=== PATIENT | male | born 1930 | race Caucasian/White ===

== ENCOUNTER 2022-06-19 04:40 | Inpatient (IN) | payer MEDICARE, MEDICAID ==
[~2022-06-19] VITALS: Ht 172.7 cm; Wt 67.8 kg
[2022-06-19] MEDS ORDERED: ONDANSETRON HCL 4MG/2ML INJ IV PRN (06:45)
[2022-06-19] MEDS ORDERED: SODIUM CHLORIDE 0.9% INJ 3ML FLUSH IVF SCH (06:45)
[2022-06-19] MEDS ORDERED: FAMOTIDINE 20MG TABLET PO ONE (06:45)
[2022-06-19 08:00] VITALS: BP 105/55
[2022-06-19] MEDS: LISINOPRIL 20MG TABLET PO SCH (09:00)
[2022-06-19] MEDS: AMLODIPINE 10MG TABLET PO SCH (09:00)
[2022-06-19] MEDS: LEVETIRACETAM 250MG TABLET PO SCH ×2 (09:55→20:27)
[2022-06-19] MEDS: CLOPIDOGREL 75MG TABLET PO SCH (09:55)
[2022-06-19] MEDS: HYDROCODONE/ACETAMINOPHEN 5/325MG TABLET PO PRN ×2 (09:55→17:23)
[2022-06-19] MEDS: FAMOTIDINE 20MG TABLET PO SCH (09:55)
[2022-06-19] MEDS: ASPIRIN 81MG EC TABLET PO SCH (09:56)
[2022-06-19] MEDS: DOCUSATE SODIUM 250MG CAPSULE PO SCH (09:57)
[2022-06-19 11:55] LABS: BASOPHILS % 0.8 % (0.0-2.0); EOSINOPHILS % 3.6 % (0.0-5.0); HEMATOCRIT. 42.5 % (42.0-52.0); HEMOGLOBIN. 13.6 g/dL (14.0-18.0); LYMPHOCYTES % 22.6 % (20.0-50.0); MEAN CORPUSCULAR HEMOGLOBIN 29.6 pg (28.0-32.0); MEAN CORPUSCULAR VOLUME 92.5 fL (80.0-94.0); MONOCYTES % 11.5 % (2.0-8.0); NEUTROPHILS % 61.5 % (40.0-76.0); RED CELL DISTRIBUTION WIDTH 15.6 % (11.6-14.6)
[2022-06-19 12:33] LABS: PLATELET 241 x1000/uL (130-400)
[2022-06-19] MEDS: NICOTINE 14MG PATCH TD SCH (13:34)
[2022-06-19 13:38] LABS: CHLORIDE 104 mEq/L (98-107)
[2022-06-19 20:18] VITALS: BP 134/41
[2022-06-20] MEDS: LACTULOSE 20G/30ML UDC PO PRN (04:59)
[2022-06-20] MEDS: HYDROCODONE/ACETAMINOPHEN 5/325MG TABLET PO PRN ×3 (05:00→18:54)
[2022-06-20 05:56] LABS: BASOPHILS % 0.6 % (0.0-2.0); EOSINOPHILS % 3.8 % (0.0-5.0); HEMATOCRIT. 39.1 % (42.0-52.0); HEMOGLOBIN. 13.1 g/dL (14.0-18.0); LYMPHOCYTES % 22.7 % (20.0-50.0); MEAN CORPUSCULAR HEMOGLOBIN 29.5 pg (28.0-32.0); MEAN CORPUSCULAR VOLUME 88.3 fL (80.0-94.0); MEAN PLATELET VOLUME 7.7 fl (7.4-10.4); MONOCYTES % 10.2 % (2.0-8.0); NEUTROPHILS % 62.7 % (40.0-76.0); PLATELET 370 x1000/uL (130-400); RED BLOOD CELL COUNT 4.43 mill/uL (4.7-6.1); RED CELL DISTRIBUTION WIDTH 15.3 % (11.6-14.6)
[2022-06-20 06:09] LABS: CHLORIDE 101 mEq/L (98-107)
[2022-06-20 06:24] LABS: HDL CHOLESTEROL 35 mg/dL (40-59); LDL CHOLESTEROL 94 mg/dL (5-100); TOTAL IRON BINDING CAPACITY 293 ug/dL (250-450)
[2022-06-20 06:26] LABS: FERRITIN 601 ng/mL (22-322)
[2022-06-20 07:01] LABS: VITAMIN B12 SERUM > 2000.0 pg/mL (211-911)
[2022-06-20 08:00] VITALS: BP 153/66
[2022-06-20] MEDS: ASPIRIN 81MG EC TABLET PO SCH (09:47)
[2022-06-20] MEDS: LISINOPRIL 20MG TABLET PO SCH (09:47)
[2022-06-20] MEDS: DOCUSATE SODIUM 250MG CAPSULE PO SCH (09:47)
[2022-06-20] MEDS: FAMOTIDINE 20MG TABLET PO SCH (09:47)
[2022-06-20] MEDS: CLOPIDOGREL 75MG TABLET PO SCH (09:48)
[2022-06-20] MEDS: NICOTINE 14MG PATCH TD SCH (09:48)
[2022-06-20] MEDS: AMLODIPINE 10MG TABLET PO SCH (09:48)
[2022-06-20] MEDS: LEVETIRACETAM 250MG TABLET PO SCH ×3 (09:48→20:56)
[2022-06-20 19:58] VITALS: BP 156/70
[2022-06-21] MEDS: HYDROCODONE/ACETAMINOPHEN 5/325MG TABLET PO PRN ×2 (06:23→18:34)
[2022-06-21 08:00] VITALS: BP 158/71
[2022-06-21] MEDS: ASPIRIN 81MG EC TABLET PO SCH (08:33)
[2022-06-21] MEDS: DOCUSATE SODIUM 250MG CAPSULE PO SCH (08:33)
[2022-06-21] MEDS: CLOPIDOGREL 75MG TABLET PO SCH (08:33)
[2022-06-21] MEDS: LISINOPRIL 20MG TABLET PO SCH (08:34)
[2022-06-21] MEDS: AMLODIPINE 10MG TABLET PO SCH (08:34)
[2022-06-21] MEDS: LEVETIRACETAM 250MG TABLET PO SCH ×2 (08:34→20:36)
[2022-06-21] MEDS: NICOTINE 14MG PATCH TD SCH (08:35)
[2022-06-21] MEDS: FAMOTIDINE 20MG TABLET PO SCH (09:18)
[2022-06-21] MEDS: ACETAMINOPHEN 325MG TABLET PO PRN (12:22)
[2022-06-21] MEDS ORDERED: POLYETHYLENE GLYCOL 3350 (17GM) 1 DOSE PACK PO ONE (18:00)
[2022-06-21] MEDS ORDERED: NALOXONE HCL 0.4MG/ML VIAL IV PRN (18:15)
[2022-06-21] MEDS: POLYETHYLENE GLYCOL 3350 (17GM) 1 DOSE PACK PO SCH (18:27)
[2022-06-21] MEDS: LIDOCAINE 5% PATCH TOP SCH (18:34)
[2022-06-21 20:00] VITALS: BP 145/67
[2022-06-22] MEDS: LACTULOSE 20G/30ML UDC PO PRN (06:12)
[2022-06-22] MEDS: LEVOTHYROXINE SODIUM 25MCG TABLET PO SCH (06:13)
[2022-06-22] MEDS: HYDROCODONE/ACETAMINOPHEN 5/325MG TABLET PO PRN (06:15)
[2022-06-22] MEDS ORDERED: NA PHOS,M-B/NA PHOS,DI-BA ENEMA 118ML PR PRN (07:45)
[2022-06-22 08:00] VITALS: BP 158/69
[2022-06-22] MEDS: ASPIRIN 81MG EC TABLET PO SCH (08:55)
[2022-06-22] MEDS: CLOPIDOGREL 75MG TABLET PO SCH (08:55)
[2022-06-22] MEDS: LEVETIRACETAM 250MG TABLET PO SCH ×2 (08:55→20:23)
[2022-06-22] MEDS: LISINOPRIL 20MG TABLET PO SCH (08:55)
[2022-06-22] MEDS: DOCUSATE SODIUM 250MG CAPSULE PO SCH (08:56)
[2022-06-22] MEDS: AMLODIPINE 10MG TABLET PO SCH (08:56)
[2022-06-22] MEDS: FAMOTIDINE 20MG TABLET PO SCH (08:56)
[2022-06-22] MEDS: NICOTINE 14MG PATCH TD SCH (08:58)
[2022-06-22] MEDS: LIDOCAINE 5% PATCH TOP SCH (08:58)
[2022-06-22] MEDS: POLYETHYLENE GLYCOL 3350 (17GM) 1 DOSE PACK PO SCH (09:07)
[2022-06-22] MEDS: LACTULOSE 20G/30ML UDC PO SCH ×3 (11:19→17:11)
[2022-06-22 20:00] VITALS: BP 123/59
[2022-06-23] MEDS: LEVOTHYROXINE SODIUM 25MCG TABLET PO SCH (06:14)
[2022-06-23 08:00] VITALS: BP 151/69
[2022-06-23] MEDS: LEVETIRACETAM 250MG TABLET PO SCH ×2 (09:20→20:32)
[2022-06-23] MEDS: DOCUSATE SODIUM 250MG CAPSULE PO SCH (09:20)
[2022-06-23] MEDS: CLOPIDOGREL 75MG TABLET PO SCH (09:20)
[2022-06-23] MEDS: LISINOPRIL 20MG TABLET PO SCH (09:21)
[2022-06-23] MEDS: FAMOTIDINE 20MG TABLET PO SCH (09:22)
[2022-06-23] MEDS: ASPIRIN 81MG EC TABLET PO SCH (09:22)
[2022-06-23] MEDS: POLYETHYLENE GLYCOL 3350 (17GM) 1 DOSE PACK PO SCH (09:22)
[2022-06-23] MEDS: AMLODIPINE 10MG TABLET PO SCH (09:22)
[2022-06-23] MEDS: NICOTINE 14MG PATCH TD SCH (09:23)
[2022-06-23] MEDS: LIDOCAINE 5% PATCH TOP SCH (09:26)
[2022-06-23 10:31] LABS: BASOPHILS % 0.7 % (0.0-2.0); EOSINOPHILS % 1.8 % (0.0-5.0); HEMATOCRIT. 40.8 % (42.0-52.0); HEMOGLOBIN. 13.5 g/dL (14.0-18.0); LYMPHOCYTES % 18.1 % (20.0-50.0); MEAN CORPUSCULAR HEMOGLOBIN 29.7 pg (28.0-32.0); MEAN CORPUSCULAR VOLUME 90.3 fL (80.0-94.0); NEUTROPHILS % 71.4 % (40.0-76.0); PLATELET 381 x1000/uL (130-400); RED BLOOD CELL COUNT 4.53 mill/uL (4.7-6.1); RED CELL DISTRIBUTION WIDTH 15.2 % (11.6-14.6)
[2022-06-23 10:52] LABS: CHLORIDE 99 mEq/L (98-107)
[2022-06-23 20:21] VITALS: BP 149/56
[2022-06-24] MEDS: LEVOTHYROXINE SODIUM 25MCG TABLET PO SCH ×2 (06:14→07:00)
[2022-06-24 08:00] VITALS: BP 150/59
[2022-06-24] MEDS: DOCUSATE SODIUM 250MG CAPSULE PO SCH (08:28)
[2022-06-24] MEDS: LEVETIRACETAM 250MG TABLET PO SCH ×2 (08:28→20:35)
[2022-06-24] MEDS: ASPIRIN 81MG EC TABLET PO SCH (08:28)
[2022-06-24] MEDS: AMLODIPINE 10MG TABLET PO SCH (08:29)
[2022-06-24] MEDS: LISINOPRIL 20MG TABLET PO SCH (08:30)
[2022-06-24] MEDS: FAMOTIDINE 20MG TABLET PO SCH (08:30)
[2022-06-24] MEDS: CLOPIDOGREL 75MG TABLET PO SCH (08:30)
[2022-06-24] MEDS: LIDOCAINE 5% PATCH TOP SCH (08:33)
[2022-06-24] MEDS: HYDROCODONE/ACETAMINOPHEN 5/325MG TABLET PO PRN (08:33)
[2022-06-24] MEDS: POLYETHYLENE GLYCOL 3350 (17GM) 1 DOSE PACK PO SCH (08:37)
[2022-06-24] MEDS: NICOTINE 14MG PATCH TD SCH (08:39)
[2022-06-24] MEDS ORDERED: FAMO20TA8 PO (15:42)
[2022-06-24] MEDS ORDERED: LISI20TA31 PO (15:42)
[2022-06-24] MEDS ORDERED: AMLO10TA80 PO (15:42)
[2022-06-24] MEDS ORDERED: CLOP-31 PO (15:43)
[2022-06-24] MEDS ORDERED: LIDOCAINE HCL 1% 10 MG/ML 10ML VIAL INJ NR (16:00)
[2022-06-24] MEDS ORDERED: TRIAMCINOLONE ACETONIDE 40MG/ML 1ML VIAL IM NR (16:00)
[2022-06-24] MEDS ORDERED: ETHYL CHLORIDE CAN TOP NR (16:00)
[2022-06-24] MEDS: CARBIDOPA/LEVODOPA 25/100MG TABLET CR PO SCH (17:15)
[2022-06-24 20:02] VITALS: BP 146/78
[2022-06-25] MEDS: LEVOTHYROXINE SODIUM 25MCG TABLET PO SCH (06:19)
[2022-06-25 08:00] VITALS: BP 127/65
[2022-06-25] MEDS: POLYETHYLENE GLYCOL 3350 (17GM) 1 DOSE PACK PO SCH (08:28)
[2022-06-25] MEDS: CLOPIDOGREL 75MG TABLET PO SCH (08:30)
[2022-06-25] MEDS: AMLODIPINE 10MG TABLET PO SCH (08:30)
[2022-06-25] MEDS: LEVETIRACETAM 250MG TABLET PO SCH ×2 (08:30→20:44)
[2022-06-25] MEDS: ASPIRIN 81MG EC TABLET PO SCH (08:31)
[2022-06-25] MEDS: FAMOTIDINE 20MG TABLET PO SCH (08:31)
[2022-06-25] MEDS: LISINOPRIL 40MG TABLET PO SCH (08:32)
[2022-06-25] MEDS: NICOTINE 14MG PATCH TD SCH (08:32)
[2022-06-25] MEDS: LIDOCAINE 5% PATCH TOP SCH (08:33)
[2022-06-25] MEDS: DOCUSATE SODIUM 250MG CAPSULE PO SCH (09:00)
[2022-06-25] MEDS: CARBIDOPA/LEVODOPA 25/100MG TABLET CR PO SCH ×2 (12:12→18:03)
[2022-06-25 20:00] VITALS: BP 139/79
[2022-06-26] MEDS: LEVOTHYROXINE SODIUM 25MCG TABLET PO SCH (05:59)
[2022-06-26 07:39] LABS: BASOPHILS % 0.1 % (0.0-2.0); HEMATOCRIT. 37.3 % (42.0-52.0); HEMOGLOBIN. 12.5 g/dL (14.0-18.0); LYMPHOCYTES % 16.7 % (20.0-50.0); MEAN CORPUSCULAR VOLUME 89.2 fL (80.0-94.0); MEAN PLATELET VOLUME 8.1 fl (7.4-10.4); MONOCYTES % 6.2 % (2.0-8.0); PLATELET 357 x1000/uL (130-400); RED BLOOD CELL COUNT 4.18 mill/uL (4.7-6.1); RED CELL DISTRIBUTION WIDTH 14.9 % (11.6-14.6)
[2022-06-26 07:54] LABS: CHLORIDE 99 mEq/L (98-107)
[2022-06-26 08:00] VITALS: BP 120/66
[2022-06-26] MEDS: POLYETHYLENE GLYCOL 3350 (17GM) 1 DOSE PACK PO SCH (09:46)
[2022-06-26] MEDS: NICOTINE 14MG PATCH TD SCH (09:47)
[2022-06-26] MEDS: LIDOCAINE 5% PATCH TOP SCH ×2 (09:50→15:44)
[2022-06-26] MEDS: CLOPIDOGREL 75MG TABLET PO SCH (09:51)
[2022-06-26] MEDS: ASPIRIN 81MG EC TABLET PO SCH (09:51)
[2022-06-26] MEDS: AMLODIPINE 10MG TABLET PO SCH (09:51)
[2022-06-26] MEDS: CARBIDOPA/LEVODOPA 25/100MG TABLET CR PO SCH ×2 (09:51→17:40)
[2022-06-26] MEDS: LEVETIRACETAM 250MG TABLET PO SCH ×2 (09:51→20:57)
[2022-06-26] MEDS: DOCUSATE SODIUM 250MG CAPSULE PO SCH (09:51)
[2022-06-26] MEDS: LISINOPRIL 40MG TABLET PO SCH (09:51)
[2022-06-26] MEDS: FAMOTIDINE 20MG TABLET PO SCH (09:52)
[2022-06-26 20:00] VITALS: BP 111/54
[2022-06-27] MEDS: LEVOTHYROXINE SODIUM 25MCG TABLET PO SCH (05:49)
[2022-06-27 08:00] VITALS: BP 145/62
[2022-06-27] MEDS: DOCUSATE SODIUM 250MG CAPSULE PO SCH (09:23)
[2022-06-27] MEDS: ASPIRIN 81MG EC TABLET PO SCH (09:23)
[2022-06-27] MEDS: CARBIDOPA/LEVODOPA 25/100MG TABLET CR PO SCH ×2 (09:23→17:59)
[2022-06-27] MEDS: LEVETIRACETAM 250MG TABLET PO SCH ×2 (09:23→21:00)
[2022-06-27] MEDS: FAMOTIDINE 20MG TABLET PO SCH (09:23)
[2022-06-27] MEDS: CLOPIDOGREL 75MG TABLET PO SCH (09:23)
[2022-06-27] MEDS: POLYETHYLENE GLYCOL 3350 (17GM) 1 DOSE PACK PO SCH (09:24)
[2022-06-27] MEDS: LISINOPRIL 40MG TABLET PO SCH (09:24)
[2022-06-27] MEDS: AMLODIPINE 10MG TABLET PO SCH (09:24)
[2022-06-27] MEDS: LIDOCAINE 5% PATCH TOP SCH ×2 (09:25→09:26)
[2022-06-27] MEDS: NICOTINE 14MG PATCH TD SCH (09:25)
[2022-06-27] MEDS: HYDROCODONE/ACETAMINOPHEN 5/325MG TABLET PO PRN (10:29)
[2022-06-27 14:09] LABS: 25-HYDROXY VITAMIN D3 20 ng/mL (.)
[2022-06-27 20:00] VITALS: BP 124/55
[2022-06-28] MEDS: LEVOTHYROXINE SODIUM 25MCG TABLET PO SCH (06:10)
[2022-06-28 08:00] VITALS: BP 123/65
[2022-06-28 09:07] LABS: BASOPHILS % 1.1 % (0.0-2.0); CHLORIDE 100 mEq/L (98-107); HEMATOCRIT. 35.7 % (42.0-52.0); HEMOGLOBIN. 12.1 g/dL (14.0-18.0); LYMPHOCYTES % 31.8 % (20.0-50.0); MEAN CORPUSCULAR VOLUME 88.7 fL (80.0-94.0); MEAN PLATELET VOLUME 7.8 fl (7.4-10.4); MONOCYTES % 14.1 % (2.0-8.0); PLATELET 325 x1000/uL (130-400); RED BLOOD CELL COUNT 4.03 mill/uL (4.7-6.1); RED CELL DISTRIBUTION WIDTH 15.1 % (11.6-14.6)
[2022-06-28] MEDS: LEVETIRACETAM 250MG TABLET PO SCH ×2 (09:59→22:34)
[2022-06-28] MEDS: CARBIDOPA/LEVODOPA 25/100MG TABLET CR PO SCH ×2 (09:59→16:49)
[2022-06-28] MEDS: AMLODIPINE 10MG TABLET PO SCH (09:59)
[2022-06-28] MEDS: DOCUSATE SODIUM 250MG CAPSULE PO SCH (09:59)
[2022-06-28] MEDS: ASPIRIN 81MG EC TABLET PO SCH (09:59)
[2022-06-28] MEDS: CLOPIDOGREL 75MG TABLET PO SCH (10:00)
[2022-06-28] MEDS: LISINOPRIL 40MG TABLET PO SCH (10:00)
[2022-06-28] MEDS: FAMOTIDINE 20MG TABLET PO SCH (10:00)
[2022-06-28] MEDS: POLYETHYLENE GLYCOL 3350 (17GM) 1 DOSE PACK PO SCH (10:00)
[2022-06-28] MEDS: LIDOCAINE 5% PATCH TOP SCH ×2 (10:01→10:02)
[2022-06-28] MEDS: NICOTINE 14MG PATCH TD SCH (10:01)
[2022-06-28] MEDS: NITROGLYCERIN 0.4MG/HR PATCH TOP SCH (11:23)
[2022-06-28] MEDS: ERGOCALCIFEROL 50000UNITS CAPSULE PO SCH (11:23)
[2022-06-28 20:00] VITALS: BP 98/46
[2022-06-29 05:36] LABS: BASOPHILS % 0.8 % (0.0-2.0); EOSINOPHILS % 5.1 % (0.0-5.0); HEMATOCRIT. 36.7 % (42.0-52.0); HEMOGLOBIN. 12.3 g/dL (14.0-18.0); LYMPHOCYTES % 33.3 % (20.0-50.0); MEAN CORPUSCULAR HEMOGLOBIN 29.5 pg (28.0-32.0); MEAN CORPUSCULAR VOLUME 88.4 fL (80.0-94.0); MEAN PLATELET VOLUME 7.4 fl (7.4-10.4); MONOCYTES % 13.7 % (2.0-8.0); NEUTROPHILS % 47.1 % (40.0-76.0); PLATELET 307 x1000/uL (130-400); RED BLOOD CELL COUNT 4.16 mill/uL (4.7-6.1)
[2022-06-29 05:57] LABS: CHLORIDE 102 mEq/L (98-107)
[2022-06-29] MEDS: LEVOTHYROXINE SODIUM 25MCG TABLET PO SCH (06:25)
[2022-06-29 08:00] VITALS: BP 124/44
[2022-06-29] MEDS: LIDOCAINE 5% PATCH TOP SCH ×2 (09:00→10:18)
[2022-06-29] MEDS: NITROGLYCERIN 0.4MG/HR PATCH TOP SCH (09:00)
[2022-06-29] MEDS: FAMOTIDINE 20MG TABLET PO SCH (09:00)
[2022-06-29] MEDS: POLYETHYLENE GLYCOL 3350 (17GM) 1 DOSE PACK PO SCH (09:00)
[2022-06-29] MEDS: LEVETIRACETAM 250MG TABLET PO SCH ×2 (10:08→21:20)
[2022-06-29] MEDS: NICOTINE 14MG PATCH TD SCH (10:08)
[2022-06-29] MEDS: LISINOPRIL 40MG TABLET PO SCH (10:09)
[2022-06-29] MEDS: ASPIRIN 81MG EC TABLET PO SCH (10:09)
[2022-06-29] MEDS: CLOPIDOGREL 75MG TABLET PO SCH (10:09)
[2022-06-29] MEDS: AMLODIPINE 10MG TABLET PO SCH (10:10)
[2022-06-29] MEDS: CARBIDOPA/LEVODOPA 25/100MG TABLET CR PO SCH ×2 (10:10→16:58)
[2022-06-29] MEDS: DOCUSATE SODIUM 250MG CAPSULE PO SCH (10:10)
[2022-06-29] MEDS ORDERED: IOHEXOL-350 100 ML BOTTLE ONE (10:57)
[2022-06-29 20:24] VITALS: BP 139/60
[2022-06-29] MEDS: ACETAMINOPHEN 325MG TABLET PO PRN (21:21)
[2022-06-30] MEDS: LEVOTHYROXINE SODIUM 25MCG TABLET PO SCH (07:02)
[2022-06-30 08:00] VITALS: BP 145/66
[2022-06-30] MEDS: NITROGLYCERIN 0.4MG/HR PATCH TOP SCH (09:00)
[2022-06-30] MEDS: LIDOCAINE 5% PATCH TOP SCH ×2 (09:00→09:36)
[2022-06-30] MEDS: POLYETHYLENE GLYCOL 3350 (17GM) 1 DOSE PACK PO SCH (09:17)
[2022-06-30] MEDS: DOCUSATE SODIUM 250MG CAPSULE PO SCH (09:18)
[2022-06-30] MEDS: FAMOTIDINE 20MG TABLET PO SCH (09:19)
[2022-06-30] MEDS: LEVETIRACETAM 250MG TABLET PO SCH ×2 (09:19→21:56)
[2022-06-30] MEDS: CLOPIDOGREL 75MG TABLET PO SCH (09:20)
[2022-06-30] MEDS: AMLODIPINE 10MG TABLET PO SCH (09:20)
[2022-06-30] MEDS: LISINOPRIL 40MG TABLET PO SCH (09:21)
[2022-06-30] MEDS: CARBIDOPA/LEVODOPA 25/100MG TABLET CR PO SCH ×2 (09:21→16:23)
[2022-06-30] MEDS: ASPIRIN 81MG EC TABLET PO SCH (09:22)
[2022-06-30] MEDS: NICOTINE 14MG PATCH TD SCH (09:23)
[2022-06-30] MEDS: ACETAMINOPHEN 325MG TABLET PO PRN ×2 (15:06→21:56)
[2022-06-30 20:00] VITALS: BP 136/62
[2022-07-01] MEDS: LEVOTHYROXINE SODIUM 25MCG TABLET PO SCH (05:59)
[2022-07-01 08:00] VITALS: BP 144/66
[2022-07-01] MEDS: POLYETHYLENE GLYCOL 3350 (17GM) 1 DOSE PACK PO SCH ×2 (09:00→09:19)
[2022-07-01] MEDS: DOCUSATE SODIUM 250MG CAPSULE PO SCH (09:17)
[2022-07-01] MEDS: CLOPIDOGREL 75MG TABLET PO SCH (09:17)
[2022-07-01] MEDS: LEVETIRACETAM 250MG TABLET PO SCH ×2 (09:17→22:04)
[2022-07-01] MEDS: AMLODIPINE 10MG TABLET PO SCH (09:18)
[2022-07-01] MEDS: NICOTINE 14MG PATCH TD SCH (09:18)
[2022-07-01] MEDS: LISINOPRIL 40MG TABLET PO SCH (09:18)
[2022-07-01] MEDS: ASPIRIN 81MG EC TABLET PO SCH (09:18)
[2022-07-01] MEDS: FAMOTIDINE 20MG TABLET PO SCH (09:18)
[2022-07-01] MEDS: CARBIDOPA/LEVODOPA 25/100MG TABLET CR PO SCH ×2 (09:18→17:29)
[2022-07-01] MEDS: LIDOCAINE 5% PATCH TOP SCH ×2 (09:19→09:20)
[2022-07-01] MEDS: NITROGLYCERIN 0.4MG/HR PATCH TOP SCH (09:23)
[2022-07-01] MEDS: ACETAMINOPHEN 325MG TABLET PO PRN ×2 (13:23→22:04)
[2022-07-01] MEDS ORDERED: HYDROCODONE/ACETAMINOPHEN 5/325MG TABLET PO PRN (14:45)
[2022-07-01 20:00] VITALS: BP 115/58
[2022-07-02] MEDS: LEVOTHYROXINE SODIUM 25MCG TABLET PO SCH (06:00)
[2022-07-02 08:00] VITALS: BP 141/57
[2022-07-02] MEDS: FAMOTIDINE 20MG TABLET PO SCH (09:00)
[2022-07-02] MEDS: LIDOCAINE 5% PATCH TOP SCH ×2 (09:00→10:42)
[2022-07-02] MEDS: NITROGLYCERIN 0.4MG/HR PATCH TOP SCH (09:00)
[2022-07-02] MEDS: DOCUSATE SODIUM 250MG CAPSULE PO SCH (10:37)
[2022-07-02] MEDS: NICOTINE 14MG PATCH TD SCH (10:37)
[2022-07-02] MEDS: POLYETHYLENE GLYCOL 3350 (17GM) 1 DOSE PACK PO SCH (10:37)
[2022-07-02] MEDS: AMLODIPINE 10MG TABLET PO SCH (10:38)
[2022-07-02] MEDS: CLOPIDOGREL 75MG TABLET PO SCH (10:40)
[2022-07-02] MEDS: CARBIDOPA/LEVODOPA 25/100MG TABLET CR PO SCH ×2 (10:40→16:29)
[2022-07-02] MEDS: LISINOPRIL 40MG TABLET PO SCH (10:40)
[2022-07-02] MEDS: LEVETIRACETAM 250MG TABLET PO SCH ×2 (10:41→20:40)
[2022-07-02] MEDS: ASPIRIN 81MG EC TABLET PO SCH (10:41)
[2022-07-02] MEDS: ACETAMINOPHEN 325MG TABLET PO PRN (16:30)
[2022-07-02 20:00] VITALS: BP 136/62
[2022-07-03 08:00] VITALS: BP 160/60
[2022-07-03] MEDS ORDERED: BARIUM SULFATE 176 GM SUSP.RECON ONE (08:56)
[2022-07-03] MEDS: NITROGLYCERIN 0.4MG/HR PATCH TOP SCH (09:00)
[2022-07-03] MEDS: LEVETIRACETAM 250MG TABLET PO SCH ×2 (09:00→21:41)
[2022-07-03] MEDS: CARBIDOPA/LEVODOPA 25/100MG TABLET CR PO SCH (16:07)
[2022-07-03 20:07] VITALS: BP 118/64
[2022-07-04] MEDS: LEVOTHYROXINE SODIUM 25MCG TABLET PO SCH (05:31)
[2022-07-04 08:00] VITALS: BP 122/70
[2022-07-04] MEDS: NITROGLYCERIN 0.4MG/HR PATCH TOP SCH (09:00)
[2022-07-04] MEDS: AMLODIPINE 10MG TABLET PO SCH (09:16)
[2022-07-04] MEDS: LIDOCAINE 5% PATCH TOP SCH ×2 (09:18)
[2022-07-04] MEDS: DOCUSATE SODIUM 250MG CAPSULE PO SCH (09:19)
[2022-07-04] MEDS: ASPIRIN 81MG EC TABLET PO SCH (09:20)
[2022-07-04] MEDS: LISINOPRIL 40MG TABLET PO SCH (09:21)
[2022-07-04] MEDS: CLOPIDOGREL 75MG TABLET PO SCH (09:21)
[2022-07-04] MEDS: FAMOTIDINE 20MG TABLET PO SCH (09:21)
[2022-07-04] MEDS: CARBIDOPA/LEVODOPA 25/100MG TABLET CR PO SCH ×2 (09:22→17:46)
[2022-07-04] MEDS: LEVETIRACETAM 250MG TABLET PO SCH ×2 (09:22→21:34)
[2022-07-04] MEDS: POLYETHYLENE GLYCOL 3350 (17GM) 1 DOSE PACK PO SCH (09:23)
[2022-07-04] MEDS: NICOTINE 14MG PATCH TD SCH (09:23)
[2022-07-04 20:19] VITALS: BP 139/56
[2022-07-05] MEDS: LEVOTHYROXINE SODIUM 25MCG TABLET PO SCH (06:15)
[2022-07-05 08:00] VITALS: BP 136/67
[2022-07-05 08:29] VITALS: BP 136/67
[2022-07-05] MEDS: LIDOCAINE 5% PATCH TOP SCH ×2 (09:02→09:03)
[2022-07-05 09:03] VITALS: BP 136/67
[2022-07-05] MEDS: NICOTINE 14MG PATCH TD SCH (09:03)
[2022-07-05] MEDS: POLYETHYLENE GLYCOL 3350 (17GM) 1 DOSE PACK PO SCH (09:03)
[2022-07-05] MEDS: FAMOTIDINE 20MG TABLET PO SCH (09:03)
[2022-07-05] MEDS: AMLODIPINE 10MG TABLET PO SCH (09:04)
[2022-07-05] MEDS: CLOPIDOGREL 75MG TABLET PO SCH (09:04)
[2022-07-05] MEDS: LISINOPRIL 40MG TABLET PO SCH (09:04)
[2022-07-05] MEDS: ASPIRIN 81MG EC TABLET PO SCH (09:04)
[2022-07-05] MEDS: LEVETIRACETAM 250MG TABLET PO SCH (09:04)
[2022-07-05] MEDS: DOCUSATE SODIUM 250MG CAPSULE PO SCH (09:04)
[2022-07-05] MEDS: NITROGLYCERIN 0.4MG/HR PATCH TOP SCH (09:06)
[2022-07-05] MEDS: ERGOCALCIFEROL 50000UNITS CAPSULE PO SCH (09:07)
[2022-07-05] MEDS: ACETAMINOPHEN 325MG TABLET PO PRN (09:07)
[2022-07-05] MEDS ORDERED: KEPP250 PO (11:25)
[2022-07-05] MEDS ORDERED: LEVO25TA7 PO (11:25)
[2022-07-05] MEDS ORDERED: LISI40TA13 PO (11:25)
[2022-07-05] MEDS ORDERED: CLOP75TA15 PO (11:25)
[2022-07-05] MEDS ORDERED: NITR1PAT64 TOP (11:25)
[2022-07-05] MEDS ORDERED: AMLO10TA80 PO (11:25)
[2022-07-05] MEDS ORDERED: LIDO700A30 TOP (11:25)
[2022-07-05] MEDS ORDERED: NICO-681 TD (11:25)
[2022-07-05] MEDS ORDERED: SINCR21 PO (11:25)
[2022-07-05] MEDS ORDERED: ASPI-1406 PO (11:25)
== END 2022-07-05 13:29 | disposition home health service (06) | DRG 65 ==
LOC: UNDOADMIN 05:11
PROVIDERS: ADMIT Physical Medicine & Rehabilitation Spinal Cord Injury Medicine; ATTEND Family Medicine Adult Medicine
DX: I62.02 Nontraumatic subacute subdural hemorrhage (principal); I82.411 Acute embolism and thrombosis of right femoral vein; I62.03 Nontraumatic chronic subdural hemorrhage; G83.11 Monoplegia of lower limb affecting right dominant side; R32 Unspecified urinary incontinence; F01.50 Vascular dementia, unspecified severity, without behavioral disturbance, psychotic disturbance, mood disturbance, and anxiety; I10 Essential (primary) hypertension; I65.22 Occlusion and stenosis of left carotid artery; I73.9 Peripheral vascular disease, unspecified; R53.81 Other malaise; R47.1 Dysarthria and anarthria; M17.11 Unilateral primary osteoarthritis, right knee; E55.9 Vitamin D deficiency, unspecified; Z20.822 Contact with and (suspected) exposure to COVID-19; E78.5 Hyperlipidemia, unspecified; M21.371 Foot drop, right foot; F39 Unspecified mood [affective] disorder; F17.210 Nicotine dependence, cigarettes, uncomplicated; G20 Parkinson's disease; Z79.02 Long term (current) use of antithrombotics/antiplatelets; Z79.82 Long term (current) use of aspirin; Z82.49 Family history of ischemic heart disease and other diseases of the circulatory system; Z79.899 Other long term (current) drug therapy; R13.10 Dysphagia, unspecified; R94.6 Abnormal results of thyroid function studies
CPT/HCPCS: 36415; 73560; 73590; 73610; 73630; 74230; 75635; 80048; 80053; 80061; 82306; 82607; 82728; 82746; 83036; 83540; 83550; 84134; 84439; 84443; 84481; 85025; 87426; 92523; 92610; 92611; 93923; 93970; 95816; 97110; 97112; 97116; 97150; 97162; 97166; 97530; 97535; A6261; J3301; J3490; Q9967